=== PATIENT | female | born 1985 | race Two or more races ===

== ENCOUNTER 2021-07-01 16:04 | Emergency (ER) | payer OTHER ==
[~2021-07-01] VITALS: Ht 160 cm; Wt 66.0 kg
[2021-07-01 16:11] VITALS: BP 130/86
[2021-07-01 17:16] LABS: BASOPHILS % 0.3 % (0.0-2.0); HEMATOCRIT. 40.8 % (36.0-48.0); HEMOGLOBIN. 14.1 g/dL (12.0-16.0); LYMPHOCYTES % 27.8 % (20.0-50.0); MEAN CORPUSCULAR HEMOGLOBIN 29.8 pg (28.0-32.0); MEAN CORPUSCULAR VOLUME 86.5 fL (81.0-99.0); MEAN PLATELET VOLUME 8.7 fl (7.4-10.4); MONOCYTES % 4.8 % (2.0-8.0); NEUTROPHILS % 66.1 % (40.0-76.0); PLATELET 221 x1000/uL (130-400); RED BLOOD CELL COUNT 4.71 mill/uL (4.2-5.4); RED CELL DISTRIBUTION WIDTH 13.6 % (11.6-14.6)
[2021-07-01 17:19] LABS: CHLORIDE 106 mEq/L (98-107)
[2021-07-01 17:28] LABS: ETHANOL BLOOD < 10 mg/dL
[2021-07-01 18:09] LABS: HCG SCREEN NEGATIVE
== END 2021-07-01 20:30 | disposition home or self-care (01) ==
LOC: ER 16:04
DX: F32.9 Major depressive disorder, single episode, unspecified (principal)
CPT/HCPCS: 36415; 80053; 80307; 80320; 80329; 84703; 85025; 99283; G0480

== ENCOUNTER 2021-12-24 11:31 | Emergency (ER) | payer MEDICAID, OTHER ==
[~2021-12-24] VITALS: Ht 167.6 cm; Wt 75.0 kg
[2021-12-24 11:35] VITALS: BP 110/64
[2021-12-24 16:39] LABS: BASOPHILS % 0.3 % (0.0-2.0); EOSINOPHILS % 1.8 % (0.0-5.0); HEMATOCRIT. 39.6 % (36.0-48.0); HEMOGLOBIN. 13.5 g/dL (12.0-16.0); MEAN CORPUSCULAR HEMOGLOBIN 30.3 pg (28.0-32.0); MEAN CORPUSCULAR VOLUME 88.4 fL (81.0-99.0); MEAN PLATELET VOLUME 8.2 fl (7.4-10.4); MONOCYTES % 4.4 % (2.0-8.0); NEUTROPHILS % 59.5 % (40.0-76.0); PLATELET 242 x1000/uL (130-400); RED BLOOD CELL COUNT 4.48 mill/uL (4.2-5.4); RED CELL DISTRIBUTION WIDTH 13.3 % (11.6-14.6)
[2021-12-24 16:45] LABS: CHLORIDE 103 mEq/L (98-107)
[2021-12-24 16:57] LABS: B-HCG QUANTITATIVE < 1 mIU/mL (<3)
== END 2021-12-24 21:56 | disposition left against medical advice (07) ==
LOC: ER 11:31
DX: Z53.21 Procedure and treatment not carried out due to patient leaving prior to being seen by health care provider (principal)
CPT/HCPCS: 36415; 76830; 76856; 80053; 84702; 85025; 86850; 86900